=== PATIENT | female | born 1955 | race Caucasian/White ===

== ENCOUNTER 2023-01-28 10:59 | Observation (INO) | payer MEDICARE, SELFPAY ==
[2023-01-28] VITALS (32 sets, daily range): BP systolic 132–198; BP diastolic 57–84; PULSE 52–64; RESP 14–35; TEMP 36.2–36.6; O2SAT 91–100; BMI 36.3
--- NOTE | 2023-01-28 11:08 | DI.RAD.S_ITS ---
PROCEDURE: XR CHEST 1V INDICATIONS: chest pain TECHNIQUE: One view of the chest was acquired. COMPARISON: None. FINDINGS: Surgical changes and devices: None. Lungs and pleura: Lungs are clear. No pleural effusions or pneumothorax. Mediastinum: Mediastinal contours appear normal. Heart size is normal. Bones and chest wall: No suspicious bony lesions. Overlying soft tissues appear unremarkable. IMPRESSION: No acute cardiopulmonary abnormality. Dictated by: Richmond Taylor M.D. on 01/28/2023 at 11:34 Approved by: Richmond Taylor M.D. on 01/28/2023 at 11:35
[2023-01-28 11:24] LABS: Hematocrit 37.9 % (36-46); Hemoglobin 12.4 g/dL (12.0-16.0); Mean Corpuscular HGB Conc 32.8 % (30-36); Mean Corpuscular Hemoglobin 30.5 PG (26-34); Mean Corpuscular Volume 93.1 fL (80-100); Platelet Count 157 X10^3/uL (150-400); Red Blood Cell Count 4.07 X10^6/uL (4.0-5.2); Red Cell Distribution Width 15.1 % (11.6-14.8)
[2023-01-28] MEDS: ASPIRIN 81 MG CHEW TAB 324 MG PO (11:26)
[2023-01-28 11:27] LABS: Add Manual Diff / Slide Review YES
[2023-01-28 11:29] LABS: INR 1.1 (0.9-1.3); Prothrombin Time 12.3 SECONDS (10.1-12.7)
--- NOTE | 2023-01-28 11:29 | ED.CHESTPAIN ---
HPI - Chest Pain General Chief Complaint: Chest Pain Stated Complaint: Gurgling in lungs SOB? Time Seen by Provider: 01/28/23 11:10 Source: patient Mode of arrival: Ambulatory Limitations: no limitations History of Present Illness HPI narrative: Patient is 68-year-old female history of CLL hypertension presents today with chest discomfort. She reports that she had some yesterday but today while walking she noticed significant pain going up her left side it is not reproducible with deep breaths or movement. It actually stopped her. He feels like she is short of breath. Denies any trauma no fever chills or productive cough. No prior history of ND or coronary artery disease. No recent travel not on any anticoagulation medication. Related Data Home Medications Medication Instructions Recorded Confirmed Acidophilus Probiotic PO BEDTIME 01/28/23 Vitamin D3 Complete 15,000 units PO BEDTIME 01/28/23 01/28/23 levothyroxine 88 mcg tablet 88 mcg PO BEDTIME 01/28/23 01/28/23 (Synthroid) omeprazole 20 mg capsule,delayed 20 mg PO DAILY 01/28/23 01/28/23 release temazepam 15 mg capsule 15 mg PO BEDTIME PRN Insomnia 01/28/23 01/28/23 valacyclovir 1 gram tablet mg 01/28/23 Allergies Allergy/AdvReac Type Severity Reaction Status Date / Time codeine Allergy Unknown Verified 01/28/23 11:08 Penicillins Allergy Unknown Verified 01/28/23 11:08 simvastatin Allergy Unknown Verified 01/28/23 11:08 Review of Systems Review of Systems ROS Unobtainable: All systems reviewed & are unremarkable except as noted in HPI and below Patient History Medical History CLL (chronic lymphocytic leukemia) Social History household members: spouse Smoking Status: Former smoker Smoking Status: Former smoker alcohol intake frequency: holidays/special occasions only Substance Use Type: does not use Exam Initial Vital Signs Initial Vital Signs: Vital Signs Temperature 97.8 F 01/28/23 11:01 Pulse Rate 64 01/28/23 11:01 Respiratory Rate 14 01/28/23 11:01 Blood Pressure 196/81 H 01/28/23 11:01 Pulse Oximetry 99 01/28/23 11:01 Oxygen Delivery Method Room Air 01/28/23 11:01 GENERAL: Alert pleasant 68-year-old female and in no acute distress. HEENT: Head atraumatic,EOMI, pupils reactive, face symmetric, moist mucous membranes CARDIOVASCULAR: Regular rate and rhythm without murmurs, rubs or gallops. RESPIRATORY: Breath sounds equal bilaterally, no wheezes rales or rhonchi. ABDOMEN: Soft, nontender. Normoactive bowel sounds all 4 quadrants. No guarding or rebound. EXTREMITIES: Normal range of motion, no clubbing or edema. Neurovascularly intact NEUROLOGICAL: Alert and oriented x4. SKIN: Warm, dry, no laceration, no petechiae, no rashes or lesions. Scores HEART Score Heart Score history: Highly Suspicious Heart Score EKG: Normal Heart Score Age: > or = 65 years old Heart Score risk factors: 1-2 risk factors Heart Score troponin: < or = to normal limit Heart Score Total: 5 Course Orders Ordered: ED Orders 01/28/23 11:08 XR chest 1V Stat 01/28/23 11:16 BNP [NT-proBNP (BNP-Adult 18+)] Stat Complete Blood Count AUTO DIFF Stat Comprehensive Metabolic Panel Stat D Dimer Stat Lipase Stat Magnesium Stat PTT Partial Thromboplastin Loy Stat Prothrombin Time INR Stat Troponin & CK Cardiac Panel Stat 01/28/23 11:19 Urine Culture Stat Urine Microscopic Stat 01/28/23 11:33 EKG-12 Lead Stat 01/28/23 13:25 Trop I [Troponin I] Stat Acetaminophen (Acetaminophen 325 Mg Tablet) 650 mg PO Q6H PRN PRN Reason: Fever/Mild Pain (1-3) Aspirin (Aspirin Ec 81 Mg Tablet) 81 mg PO DAILY [facility] Enoxaparin Sodium (Enoxaparin 40 Mg/0.4 Ml Syringe) 40 mg SUBCUT DAILY [facility] Melatonin (Melatonin 3 Mg Tablet) 6 mg PO BEDTIME PRN PRN Reason: Insomnia Naloxone HCl (Naloxone 0.4 Mg/Ml Vial) 0.2 mg IV Q2MIN PRN PRN Reason: Opiate Reversal Nitroglycerin (Nitroglycerin 0.4 Mg Sl Tab) 0.4 mg SL [id number] PRN PRN Reason: Chest Pain Ondansetron HCl (Ondansetron 4 Mg/2 Ml Inj) 4 mg IV Q4HR PRN PRN Reason: Nausea And Vomiting Polyethylene Glycol (Polyethylene Glycol 3350 17 Gm Powd.Pack) 17 gm PO DAILY PRN PRN Reason: Constipation Sennosides (Sennosides 8.6 Mg Tablet) 8.6 mg PO BID PRN PRN Reason: Constipation Discontinued Medications Aspirin (Aspirin 81 Mg Chew Tab) 324 mg PO NOW ONE Stop: 01/28/23 11:09 Last Admin: 01/28/23 11:26 Dose: 324 mg Documented By: RB Ondansetron HCl (Ondansetron 4 Mg/2 Ml Inj) 4 mg IV Q4HR [facility] Vital Signs Vital signs: Vital Signs - 8 hr 01/28/23 11:01 01/28/23 11:16 01/28/23 11:17 Temperature 97.8 F Pulse Rate 64 59 L 58 L Respiratory Rate 14 22 18 Blood Pressure 196/81 H Pulse Oximetry 99 100 100 Oxygen Delivery Method Room Air 01/28/23 11:17 01/28/23 11:30 01/28/23 11:31 Temperature Pulse Rate 61 63 Respiratory Rate 25 H 29 H Blood Pressure 156/74 H Pulse Oximetry 99 100 Oxygen Delivery Method 01/28/23 11:31 01/28/23 11:45 01/28/23 11:46 Temperature Pulse Rate 63 63 Respiratory Rate 18 21 Blood Pressure 198/80 H Pulse Oximetry 97 97 Oxygen Delivery Method 01/28/23 11:46 01/28/23 12:00 01/28/23 12:00 Temperature Pulse Rate 58 L Respiratory Rate 17 Blood Pressure 151/73 H 157/67 H Pulse Oximetry 100 Oxygen Delivery Method 01/28/23 12:15 01/28/23 12:15 01/28/23 12:30 Temperature Pulse Rate 54 L Respiratory Rate 16 Blood Pressure 157/70 H 155/67 H Pulse Oximetry 99 Oxygen Delivery Method 01/28/23 12:30 01/28/23 12:48 01/28/23 13:00 Temperature Pulse Rate 55 L 60 52 L Respiratory Rate 18 15 Blood Pressure Pulse Oximetry 100 91 100 Oxygen Delivery Method 01/28/23 13:14 01/28/23 13:14 01/28/23 13:15 Temperature Pulse Rate 52 L 57 L Respiratory Rate 21 25 H Blood Pressure 150/65 H Pulse Oximetry 100 99 Oxygen Delivery Method 01/28/23 13:16 01/28/23 13:16 01/28/23 13:30 Temperature Pulse Rate 55 L Respiratory Rate 35 H Blood Pressure 158/71 H 145/66 H Pulse Oximetry 98 Oxygen Delivery Method 01/28/23 13:30 01/28/23 13:45 01/28/23 13:45 Temperature Pulse Rate 55 L 54 L Respiratory Rate 19 17 Blood Pressure 132/72 Pulse Oximetry 100 98 Oxygen Delivery Method 01/28/23 14:00 01/28/23 14:00 01/28/23 14:15 Temperature Pulse Rate 53 L 54 L Respiratory Rate 17 22 Blood Pressure 132/65 Pulse Oximetry 100 98 Oxygen Delivery Method 01/28/23 14:16 01/28/23 14:16 01/28/23 14:30 Temperature Pulse Rate 54 L Respiratory Rate 22 Blood Pressure 149/67 H 141/57 H Pulse Oximetry 99 Oxygen Delivery Method 01/28/23 14:30 01/28/23 14:45 01/28/23 14:45 Temperature Pulse Rate 53 L 54 L Respiratory Rate 19 19 Blood Pressure 143/67 H Pulse Oximetry 99 97 Oxygen Delivery Method 01/28/23 15:00 01/28/23 15:01 01/28/23 15:01 Temperature Pulse Rate 55 L 56 L Respiratory Rate 24 Blood Pressure 141/66 H Pulse Oximetry 97 94 Oxygen Delivery Method 01/28/23 15:15 01/28/23 15:15 01/28/23 15:30 Temperature Pulse Rate 54 L Respiratory Rate 18 Blood Pressure 158/67 H 150/72 H Pulse Oximetry 100 Oxygen Delivery Method 01/28/23 15:30 01/28/23 15:45 01/28/23 15:45 Temperature Pulse Rate 59 L 57 L Respiratory Rate 22 19 Blood Pressure 180/75 H Pulse Oximetry 98 99 Oxygen Delivery Method 01/28/23 16:00 01/28/23 16:00 Temperature Pulse Rate 55 L Respiratory Rate 17 Blood Pressure 169/73 H Pulse Oximetry 100 Oxygen Delivery Method MDM - Chest Pain Lab Data 01/28/23 11:16 01/28/23 11:16 Labs: Lab Results 01/28/23 01/28/23 01/28/23 Range/Units 11:16 11:16 11:16 WBC 67.6 H* (4.5-11.0) X10^3/uL RBC 4.07 (4.0-5.2) X10^6/uL Hgb 12.4 (12.0-16.0) g/dL Hct 37.9 (36-46) % MCV 93.1 (80-100) fL MCH 30.5 (26-34) PG MCHC 32.8 (30-36) % RDW 15.1 H (11.6-14.8) % Plt Count 157 (150-400) X10^3/uL Neut % (Auto) Not Reportable Lymph % (Auto) Not Reportable [place] % (Auto) Not Reportable Eos % (Auto) Not Reportable Baso % (Auto) Not Reportable Lymph # (Auto) Not Reportable [place] # (Auto) Not Reportable Baso # (Auto) Not Reportable Total Counted 100 Seg Neutrophils % 6.0 L (38-70) % Lymphocytes % (Manual) 91.0 H (25-45) % Atypical Lymphs % 1.0 H ( - 0) % Monocytes % (Manual) 2.0 (2-11) % Neutrophils # (Manual) 4056 (2246-5340) /uL Smudge Cells 2+ H RBC Morphology Normal morphology PT 12.3 (10.1-12.7) SECONDS INR 1.1 (0.9-1.3) APTT 28 (26-36) SECONDS D-Dimer (<500) ng/ml Sodium 137 (137-145) mmol/L Potassium 4.5 (3.4-5.1) mmol/L Chloride 102 (98-107) mmol/L Carbon Dioxide 30 (22-32) mmol/L BUN 26 H (7-17) mg/dL Creatinine 0.86 (0.52-1.04) mg/dL Estimated GFR > 60 (>60) mL/min BUN/Creatinine Ratio 30.2 H (6-22) Glucose 106 (80-110) mg/dL Calcium 9.0 (8.4-10.2) mg/dL Magnesium 2.2 (1.6-2.3) mg/dL Total Bilirubin 0.6 (0.2-1.3) mg/dL AST 34 (14-36) IU/L ALT 30 (<35) IU/L Alkaline Phosphatase 75 (38-126) U/L Total Creatine Kinase 47 (30-135) U/L Troponin I < 0.012 (0.01-0.034) ng/mL NT-Pro-B Natriuret Pep (<125) pg/mL Total Protein 6.9 (6.3-8.2) g/dL Albumin 4.3 (3.5-5.0) g/dL Globulin 2.6 (1.7-4.1) g/dL Albumin/Globulin Ratio 1.7 (1.0-2.8) Triglycerides (35-150) mg/dL Cholesterol (140-199) mg/dL LDL Cholesterol, Calc (<100) mg/dL HDL Cholesterol (40-60) mg/dL Lipase 94 (23-300) U/L Urine RBC (0-5/HPF) Urine WBC (0-5/HPF) Ur Squamous Epith Cells (0-5/HPF) Urine Bacteria (None) 01/28/23 01/28/23 01/28/23 Range/Units 11:16 11:16 11:19 WBC (4.5-11.0) X10^3/uL RBC (4.0-5.2) X10^6/uL Hgb (12.0-16.0) g/dL Hct (36-46) % MCV (80-100) fL MCH (26-34) PG MCHC (30-36) % RDW (11.6-14.8) % Plt Count (150-400) X10^3/uL Neut % (Auto) Lymph % (Auto) [place] % (Auto) Eos % (Auto) Baso % (Auto) Lymph # (Auto) [place] # (Auto) Baso # (Auto) Total Counted Seg Neutrophils % (38-70) % Lymphocytes % (Manual) (25-45) % Atypical Lymphs % ( - 0) % Monocytes % (Manual) (2-11) % Neutrophils # (Manual) (1035-9997) /uL Smudge Cells RBC Morphology PT (10.1-12.7) SECONDS INR (0.9-1.3) APTT (26-36) SECONDS D-Dimer 362 (<500) ng/ml Sodium (137-145) mmol/L Potassium (3.4-5.1) mmol/L Chloride (98-107) mmol/L Carbon Dioxide (22-32) mmol/L BUN (7-17) mg/dL Creatinine (0.52-1.04) mg/dL Estimated GFR (>60) mL/min BUN/Creatinine Ratio (6-22) Glucose (80-110) mg/dL Calcium (8.4-10.2) mg/dL Magnesium (1.6-2.3) mg/dL Total Bilirubin (0.2-1.3) mg/dL AST (14-36) IU/L ALT (<35) IU/L Alkaline Phosphatase (38-126) U/L Total Creatine Kinase (30-135) U/L Troponin I (0.01-0.034) ng/mL NT-Pro-B Natriuret Pep 82 (<125) pg/mL Total Protein (6.3-8.2) g/dL Albumin (3.5-5.0) g/dL Globulin (1.7-4.1) g/dL Albumin/Globulin Ratio (1.0-2.8) Triglycerides (35-150) mg/dL Cholesterol (140-199) mg/dL LDL Cholesterol, Calc (<100) mg/dL HDL Cholesterol (40-60) mg/dL Lipase (23-300) U/L Urine RBC 1-5/hpf (0-5/HPF) Urine WBC 0-1/hpf (0-5/HPF) Ur Squamous Epith Cells 0-1 /hpf (0-5/HPF) Urine Bacteria Moderate (10-30) H (None) 01/28/23 01/28/23 Range/Units 13:25 13:25 WBC (4.5-11.0) X10^3/uL RBC (4.0-5.2) X10^6/uL Hgb (12.0-16.0) g/dL Hct (36-46) % MCV (80-100) fL MCH (26-34) PG MCHC (30-36) % RDW (11.6-14.8) % Plt Count (150-400) X10^3/uL Neut % (Auto) Lymph % (Auto) [place] % (Auto) Eos % (Auto) Baso % (Auto) Lymph # (Auto) [place] # (Auto) Baso # (Auto) Total Counted Seg Neutrophils % (38-70) % Lymphocytes % (Manual) (25-45) % Atypical Lymphs % ( - 0) % Monocytes % (Manual) (2-11) % Neutrophils # (Manual) (4118-7858) /uL Smudge Cells RBC Morphology PT (10.1-12.7) SECONDS INR (0.9-1.3) APTT (26-36) SECONDS D-Dimer (<500) ng/ml Sodium (137-145) mmol/L Potassium (3.4-5.1) mmol/L Chloride (98-107) mmol/L Carbon Dioxide (22-32) mmol/L BUN (7-17) mg/dL Creatinine (0.52-1.04) mg/dL Estimated GFR (>60) mL/min BUN/Creatinine Ratio (6-22) Glucose (80-110) mg/dL Calcium (8.4-10.2) mg/dL Magnesium (1.6-2.3) mg/dL Total Bilirubin (0.2-1.3) mg/dL AST (14-36) IU/L ALT (<35) IU/L Alkaline Phosphatase (38-126) U/L Total Creatine Kinase (30-135) U/L Troponin I < 0.012 (0.01-0.034) ng/mL NT-Pro-B Natriuret Pep (<125) pg/mL Total Protein (6.3-8.2) g/dL Albumin (3.5-5.0) g/dL Globulin (1.7-4.1) g/dL Albumin/Globulin Ratio (1.0-2.8) Triglycerides 148 (35-150) mg/dL Cholesterol 184 (140-199) mg/dL LDL Cholesterol, Calc 113 H (<100) mg/dL HDL Cholesterol 41 (40-60) mg/dL Lipase (23-300) U/L Urine RBC (0-5/HPF) Urine WBC (0-5/HPF) Ur Squamous Epith Cells (0-5/HPF) Urine Bacteria (None) Urine Dip Bedside Urine Glucose Negative Bedside Urine Bilirubin - Negative Bedside Urine Ketone - Negative Urine Specific [place] 1.015 Bedside Urine Occult Blood +++ Bedside Urine pH 6.0 Bedside Urine Protein - Negative Bedside Urine Urobilinogen - Negative Bedside Urine Nitrite - Negative Bedside Urine Leukocytes - Negative Esterase Imaging Data Chest x-ray: Radiologist's Impression: PROCEDURE:? XR CHEST 1V ? INDICATIONS:? chest pain ? TECHNIQUE:? One view of the chest was acquired.? ? COMPARISON:? None. ? FINDINGS:? ? Surgical changes and devices:? None.? ? Lungs and pleura:? Lungs are clear.? No pleural effusions or pneumothorax.? ? Mediastinum:? Mediastinal contours appear normal.? Heart size is normal.? ? Bones and chest wall:? No suspicious bony lesions.? Overlying soft tissues appear unremarkable.? ? IMPRESSION:? No acute cardiopulmonary abnormality. ? ? ? Dictated by: Richmond Taylor M.D. on 01/28/2023 at 11:34 ? ? ECG Data Interpretation: Normal sinus rhythm rate 61 TX interval 170 QRS [address] changes no T-wave inversions probable early repolarization EKG 2. Sinus rhythm rate 55 similar to previous EKG MDM Narrative Medical decision making narrative: Patient 68-year-old female history of hypertension hyperlipidemia, CLL presenting today with chest pain shortness of breath with exertion better with rest. She is 2- troponins EKGs show probably benign early positional repolarization but not ST elevation. She got up to use the restroom by the time she got back realize that she had some chest discomfort and relieved with rest. Blood work is overall reassuring she has leukocytosis 67 she reports that it was previously 81 she would a dental infection. No evidence of anemia no [place] or electrolyte abnormality. Chest x-ray is negative. With underlying cancer concern for PE as well however D-dimer is negative and she is not hypoxic. She is a heart score of 5 symptoms are certainly concerning for acute coronary disease. She received aspirin in the ER. Dr. Santacruz updated patient's symptoms test results agrees with admission We are not able to get a stress test intact Monday she is willing to be in the hospital until it is done. Discharge Plan Departure Patient Disposition: Admitted as Observation Clinical Impression: Chest pain Admit Date/Time: 01/28/23 16:13 Admit Provider: Rafat Santacruz
[2023-01-28 11:31] LABS: PTT Partial Thromboplastin Tim 28 SECONDS (26-36)
[2023-01-28 11:32] LABS: White Blood Cell Count 67.6 X10^3/uL (4.5-11.0)
[2023-01-28 11:35] LABS: Alanine Aminotransferase 30 IU/L (<35); Albumin 4.3 g/dL (3.5-5.0); Albumin Globulin Ratio 1.7 (1.0-2.8); Alkaline Phosphatase 75 U/L (38-126); Aspartate Aminotransferase 34 IU/L (14-36); BUN Creatinine Ratio 30.2 (6-22); Bilirubin Total 0.6 mg/dL (0.2-1.3); Blood Urea Nitrogen 26 mg/dL (7-17); Carbon Dioxide 30 mmol/L (22-32); Chloride 102 mmol/L (98-107); Creatine Kinase 47 U/L (30-135); Estimated Glomerular Filt Rate > 60 mL/min (>60); Globulin 2.6 g/dL (1.7-4.1); Glucose 106 mg/dL (80-110); HEMOLYSIS < 15 (0-50); Lipase 94 U/L (23-300); Magnesium 2.2 mg/dL (1.6-2.3); Potassium 4.5 mmol/L (3.4-5.1); Sodium 137 mmol/L (137-145); Total Protein 6.9 g/dL (6.3-8.2)
[2023-01-28 11:41] LABS: Neutrophils Absolute Manual 4056 /uL (3000-5900); RBC Morphology Normal Morphology; Smudge Cells 2+; Total Cells Counted 100
[2023-01-28 11:44] LABS: NT-proBNP (BNP-Adult 18+) 82 pg/mL (<125)
[2023-01-28 11:46] LABS: D Dimer 362 ng/ml (<500); Troponin I < 0.012 ng/mL (0.01-0.034)
[2023-01-28 11:53] LABS: Bacteria Urine Moderate (10-30); RBC Urine 1-5/HPF (0-5/HPF); Squamous Epithelial Cell Urine 0-1 /HPF (0-5/HPF); WBC Urine 0-1/HPF (0-5/HPF)
[2023-01-28 13:55] LABS: Troponin I < 0.012 ng/mL (0.01-0.034)
--- NOTE | 2023-01-28 16:09 | P.HP_ITS ---
History of Present Illness History of Present Illness Date Patient Seen: 01/28/23 Time Patient Seen: 18:00 Chief complaint: Gurgling in lungs SOB? Narrative: Anaid Clifford is a 68yo F with PMH of CLL, GERD and hypothryoidism who presents with chest pain. Patient states she was at an estate sale today with her and had sudden onset left-sided sharp chest pain is worse with deep breaths. Patient states side of her ribs 3 days ago on a board. Did not think much of it. She is normally very active and walks around [facility] in [place] often. She has not had pain like this before. However she has noticed several weeks of chest pressure and slight shortness of breath with exertion for which her PCP ordered a stress test which she has scheduled on February 08. Her left- sided chest pain feels very different from the chest pressure she has been h aving. This is while in certain positions a ?gurgling? in her left side over where the sharp pain was previously. She denies headache, nausea vomiting, diaphoresis, abdominal pain, or diarrhea. [facility] Medical History CLL (chronic lymphocytic leukemia) Social History household members: spouse Smoking Status: Former smoker Meds Home Medications and Allergies Home Medications Medication Instructions Recorded Confirmed Type Acidophilus Probiotic PO BEDTIME 01/28/23 History Vitamin D3 Complete 15,000 units PO BEDTIME 01/28/23 01/28/23 History levothyroxine 88 mcg tablet 88 mcg PO BEDTIME 01/28/23 01/28/23 History (Synthroid) omeprazole 20 mg capsule,delayed 20 mg PO DAILY 01/28/23 01/28/23 History release temazepam 15 mg capsule 15 mg PO BEDTIME PRN Insomnia 01/28/23 01/28/23 History valacyclovir 1 gram tablet mg 01/28/23 History Allergies Allergy/AdvReac Type Severity Reaction Status Date / Time codeine Allergy Unknown Verified 01/28/23 11:08 Penicillins Allergy Unknown Verified 01/28/23 11:08 simvastatin Allergy Unknown Verified 01/28/23 11:08 Review of Systems Review of Systems Narrative: All other systems reviewed with the patient and are negative unless otherwise stated. Exam Vital Signs (past 8 hours): - 01/28/23 11:01 01/28/23 11:16 01/28/23 11:17 Temperature 97.8 F Pulse Rate 64 59 L 58 L Respiratory Rate 14 22 18 Blood Pressure 196/81 H Pulse Oximetry 99 100 100 Oxygen Delivery Method Room Air 01/28/23 11:17 01/28/23 11:30 01/28/23 11:31 Temperature Pulse Rate 61 63 Respiratory Rate 25 H 29 H Blood Pressure 156/74 H Pulse Oximetry 99 100 Oxygen Delivery Method 01/28/23 11:31 01/28/23 11:45 01/28/23 11:46 Temperature Pulse Rate 63 63 Respiratory Rate 18 21 Blood Pressure 198/80 H Pulse Oximetry 97 97 Oxygen Delivery Method 01/28/23 11:46 01/28/23 12:00 01/28/23 12:00 Temperature Pulse Rate 58 L Respiratory Rate 17 Blood Pressure 151/73 H 157/67 H Pulse Oximetry 100 Oxygen Delivery Method 01/28/23 12:15 01/28/23 12:15 01/28/23 12:30 Temperature Pulse Rate 54 L Respiratory Rate 16 Blood Pressure 157/70 H 155/67 H Pulse Oximetry 99 Oxygen Delivery Method 01/28/23 12:30 01/28/23 12:48 01/28/23 13:00 Temperature Pulse Rate 55 L 60 52 L Respiratory Rate 18 15 Blood Pressure Pulse Oximetry 100 91 100 Oxygen Delivery Method 01/28/23 13:14 01/28/23 13:14 01/28/23 13:15 Temperature Pulse Rate 52 L 57 L Respiratory Rate 21 25 H Blood Pressure 150/65 H Pulse Oximetry 100 99 Oxygen Delivery Method 01/28/23 13:16 01/28/23 13:16 01/28/23 13:30 Temperature Pulse Rate 55 L Respiratory Rate 35 H Blood Pressure 158/71 H 145/66 H Pulse Oximetry 98 Oxygen Delivery Method 01/28/23 13:30 01/28/23 13:45 01/28/23 13:45 Temperature Pulse Rate 55 L 54 L Respiratory Rate 19 17 Blood Pressure 132/72 Pulse Oximetry 100 98 Oxygen Delivery Method Oxygen Delivery Method Room Air Narrative Exam Narrative: GEN: no acute distress HEENT: moist mucous membranes, PERRL NECK: trachea midline, no JVD CV: regular rate and rhythm, no murmurs PULM: clear bilaterally ABD: soft, nontender, nondistended, no organomegaly MSK: Pain with palpation of left lateral ribcage below left breast EXT: warm and well perfused with no edema NEURO: awake, alert, oriented, no focal deficits Objective Labs 01/28/23 11:16 01/28/23 11:16 Labs: Laboratory Results - last 24 hr 01/28/23 01/28/23 01/28/23 11:16 11:16 11:16 WBC 67.6 H* RBC 4.07 Hgb 12.4 Hct 37.9 MCV 93.1 MCH 30.5 MCHC 32.8 RDW 15.1 H Plt Count 157 Neut % (Auto) Not Reportable Lymph % (Auto) Not Reportable [place] % (Auto) Not Reportable Eos % (Auto) Not Reportable Baso % (Auto) Not Reportable Lymph # (Auto) Not Reportable [place] # (Auto) Not Reportable Baso # (Auto) Not Reportable Total Counted 100 Seg Neutrophils % 6.0 L Lymphocytes % (Manual) 91.0 H Atypical Lymphs % 1.0 H Monocytes % (Manual) 2.0 Neutrophils # (Manual) 4056 Smudge Cells 2+ H RBC Morphology Normal morphology PT 12.3 INR 1.1 APTT 28 D-Dimer Sodium 137 Potassium 4.5 Chloride 102 Carbon Dioxide 30 BUN 26 H Creatinine 0.86 Estimated GFR > 60 BUN/Creatinine Ratio 30.2 H Glucose 106 Calcium 9.0 Magnesium 2.2 Total Bilirubin 0.6 AST 34 ALT 30 Alkaline Phosphatase 75 Total Creatine Kinase 47 Troponin I < 0.012 NT-Pro-B Natriuret Pep Total Protein 6.9 Albumin 4.3 Globulin 2.6 Albumin/Globulin Ratio 1.7 Lipase 94 Urine RBC Urine WBC Ur Squamous Epith Cells Urine Bacteria 01/28/23 01/28/23 01/28/23 11:16 11:16 11:19 WBC RBC Hgb Hct MCV MCH MCHC RDW Plt Count Neut % (Auto) Lymph % (Auto) [place] % (Auto) Eos % (Auto) Baso % (Auto) Lymph # (Auto) [place] # (Auto) Baso # (Auto) Total Counted Seg Neutrophils % Lymphocytes % (Manual) Atypical Lymphs % Monocytes % (Manual) Neutrophils # (Manual) Smudge Cells RBC Morphology PT INR APTT D-Dimer 362 Sodium Potassium Chloride Carbon Dioxide BUN Creatinine Estimated GFR BUN/Creatinine Ratio Glucose Calcium Magnesium Total Bilirubin AST ALT Alkaline Phosphatase Total Creatine Kinase Troponin I NT-Pro-B Natriuret Pep 82 Total Protein Albumin Globulin Albumin/Globulin Ratio Lipase Urine RBC 1-5/hpf Urine WBC 0-1/hpf Ur Squamous Epith Cells 0-1 /hpf Urine Bacteria Moderate (10-30) H 01/28/23 13:25 WBC RBC Hgb Hct MCV MCH MCHC RDW Plt Count Neut % (Auto) Lymph % (Auto) [place] % (Auto) Eos % (Auto) Baso % (Auto) Lymph # (Auto) [place] # (Auto) Baso # (Auto) Total Counted Seg Neutrophils % Lymphocytes % (Manual) Atypical Lymphs % Monocytes % (Manual) Neutrophils # (Manual) Smudge Cells RBC Morphology PT INR APTT D-Dimer Sodium Potassium Chloride Carbon Dioxide BUN Creatinine Estimated GFR BUN/Creatinine Ratio Glucose Calcium Magnesium Total Bilirubin AST ALT Alkaline Phosphatase Total Creatine Kinase Troponin I < 0.012 NT-Pro-B Natriuret Pep Total Protein Albumin Globulin Albumin/Globulin Ratio Lipase Urine RBC Urine WBC Ur Squamous Epith Cells Urine Bacteria Assessment & Plan Assessment & Plan narrative: # chest pain with dyspnea -S pain appears to be pleuritic in nature, possibly costochondritis as patient hit left side of ribs 3 days ago on a board. CXR normal. -heart score of 4-5 -echo ordered -Lexiscan stress test ordered -troponins negative x2, check AM trop -if echo normal can consider deferring to outpatient stress test patient has scheduled on February 08 -tele # active CLL -WBC 67.6 -monitor # hypothyroidism -continue home Synthroid GERD -continue home PPI Code status is full code. DVT prophylaxis with Lovenox. Proxy is [place]. I have reviewed home meds and used all available resources to reconcile the home meds. This patient will be admitted as observation and will require less than 2 midnights of hospital time to treat chest pain.
--- NOTE | 2023-01-28 16:29 | DI.ECHO.S_ITS ---
[facility]---------+ [facility] +---------+ : : [address] : : [place], [place] : : : : [id number] : : : : Phone: [phone]+ Echocardiogram Report + + :Name: SYMONE LOPEZ Study Date: 01/29/2023 Height: 63 in : :[facility] ReadingLocation: Weight: 205 lb : : Gender: Female BSA: 2.0 m2 : :: 1955 Age: 68 yrs BP: 129/67 mmHg: :Reason For Study: CHEST PAIN : : Performed By: Drea Frederick : :Referring: DEBBIE KUMAR A : + + Interpretation Summary 1) Normal left ventricular thickness, size, wall motion, and systolic function (EF 60-65%). 2) Normal right ventricular size and function. 3) No significant valvular abnormalities. 4) No prior Echo available for comparison. Procedure: A two-dimensional transthoracic echocardiogram with color flow and Doppler was performed. The study quality was technically adequate. There is no prior echocardiogram noted for this patient. The patient was in a bradycardic rhythm during the exam. Left Ventricle: The left ventricle appears normal in size, wall thickness, and systolic function without any focal wall motion abnormalities. The ejection fraction is estimated to be 60-65%. Diastolic parameters suggest a relaxation abnormality of the left ventricle, consistent with probable normal filling pressures. Right Ventricle: The right ventricle is normal in size and function. Atria: Both atria are normal in size. There is no Doppler evidence for an interatrial shunt. Mitral Valve: The mitral valve leaflets are mildly calcified. There is trace mitral regurgitation. Aortic Valve: The aortic valve is trileaflet. The aortic valve opens well. The aortic valve is mildly calcified. There is no aortic valve stenosis. No aortic regurgitation is present. Tricuspid Valve: The tricuspid valve is normal in structure and function. There is a trace or physiologic amount of tricuspid regurgitation. The right ventricular systolic pressure is estimated to be at least 23 mmHg based on an estimated right atrial pressure of 3 mm Hg. Pulmonic Valve: The pulmonic valve is not well visualized. Great Vessels: The aortic root is normal size. The ascending aorta is normal in size. The aortic arch is normal in size. The pulmonary is not well visualized. The IVC is of normal diameter and collapses greater than 50% with a sniff. This suggests a low right atrial pressure of 3 mm Hg. Pericardium/ Pleura There is no pericardial effusion. There is no pleural effusion. MMode/2D Measurements & Calculations LVIDd: 4.3 cm LVOT diam: 2.1 cm LVIDs: 2.9 cm Ao root diam: 3.4 cm FS: 31.1 % asc Aorta Diam: 3.1 cm EPSS: 0.42 cm Ao Arch Diam (Prox Trans): 2.7 cm IVSd: 0.83 cm LVPWd: 0.89 cm LV oro. diameter/BSA (cm/m^2): 2.2 LV sys. diameter/BSA (cm/m^2): 1.5 LA A2 area: 16.5 cm2 RA long axis: 4.7 cm LA A4 area: 20.1 cm2 RA area: 11.5 cm2 LA length (vol): 5.7 cm RA vol: 24.0 ml LA vol: 49.4 ml RA : 12.3 ml/m2 LA vol index: 25.3 ml/m2 IVC diam: 0.82 cm RVD1 (basal): 3.8 cm Doppler Measurements & Calculations Ao V2 max: 158.3 cm/sec LVOT Max [place]: 114.5 cm/sec Ao V2 mean: 98.9 cm/sec LV V1 max P.2 mmHg Ao max P.0 mmHg LV V1 VTI: 27.2 cm Ao mean P.4 mmHg PHILLIP(I,D): 2.9 cm2 Ao V2 VTI: 31.5 cm PHILLIP(V,D): 2.4 cm2 sev ratio: 0.87 PHILLIP indexed to BSA (cm^2/m^2): 1.5 MV E max melida: 80.6 cm/sec TR max melida: 219.5 cm/sec MV A max melida: 88.6 cm/sec TR max P.3 mmHg MV E/A: 0.91 Med Peak E' [place]: 5.3 cm/sec E/E' med: 15.3 Lat Peak E' [place]: 8.2 cm/sec E/E' lat: 9.8 E/e' average: 12.5 MV P1/2t: 66.5 msec MV P1/2t max melida: 80.6 cm/sec SV(LVOT): 90.1 ml MVA(P1/2t): 3.3 cm2 Reading Physician:02:49 PM
[2023-01-28 16:57] LABS: Cholesterol 184 mg/dL (140-199); HDL Cholesterol 41 mg/dL (40-60); LDL Cholesterol Calculated 113 mg/dL (<100); Triglycerides 148 mg/dL (35-150)
[2023-01-28 17:28] LABS: TSH w/ Reflex to FT4 0.17 uIU/mL (0.47-4.68)
[2023-01-28] MEDS: LEVOTHYROXINE 88 MCG TABLET PO (22:53)
[2023-01-28] MEDS: ATORVASTATIN 20 MG TABLET 10 MG PO (22:53)
[2023-01-29] VITALS (7 sets, daily range): BP systolic 122–142; BP diastolic 55–81; PULSE 56–70; RESP 16–18; TEMP 35.9–36.6; O2SAT 95–97
[2023-01-29] MEDS: PANTOPRAZOLE DR 20 MG TABLET PO (05:44)
[2023-01-29 06:30] LABS: Hematocrit 38.7 % (36-46); Hemoglobin 12.8 g/dL (12.0-16.0); Mean Corpuscular HGB Conc 32.9 % (30-36); Mean Corpuscular Hemoglobin 30.5 PG (26-34); Mean Corpuscular Volume 92.7 fL (80-100); Platelet Count 146 X10^3/uL (150-400); Red Blood Cell Count 4.18 X10^6/uL (4.0-5.2)
[2023-01-29 06:31] LABS: Add Manual Diff / Slide Review YES
[2023-01-29 06:33] LABS: BUN Creatinine Ratio 26.6 (6-22); Blood Urea Nitrogen 21 mg/dL (7-17); Calcium 9.1 mg/dL (8.4-10.2); Carbon Dioxide 28 mmol/L (22-32); Chloride 104 mmol/L (98-107); Estimated Glomerular Filt Rate > 60 mL/min (>60); Glucose 89 mg/dL (80-110); HEMOLYSIS < 15 (0-50); Potassium 4.4 mmol/L (3.4-5.1); Sodium 137 mmol/L (137-145)
[2023-01-29 06:35] LABS: White Blood Cell Count 69.3 X10^3/uL (4.5-11.0)
[2023-01-29 06:45] LABS: Neutrophils Absolute Manual 7623 /uL (3000-5900); RBC Morphology Normal Morphology; Total Cells Counted 100; Troponin I < 0.012 ng/mL (0.01-0.034)
[2023-01-29 06:46] LABS: Smudge Cells 2+
--- NOTE | 2023-01-29 07:47 | P.PN_ITS ---
Subjective Subjective Date Patient Seen: 01/29/23 Interval history: She is seen today to follow-up her left pleuritic chest pain and her description of a ?gurgling in her lungs. ? She is feeling better. She is very talkative. Her vital signs look good. The white blood count is stable and the platelets are 146. The BMP normal. The TSH was 0.17 on 01/28. She is Pending a cardiac scan. Exam Vital Signs (past 8 hours): - 01/29/23 00:05 01/29/23 04:25 Temperature 97.6 F 97.1 F L Pulse Rate 60 61 Respiratory Rate 16 16 Blood Pressure 142/75 H 125/71 Pulse Oximetry 97 95 Oxygen Flow Rate 0 0 Oxygen Delivery Method Room Air Oxygen Flow Rate 0 Narrative Exam Narrative: Talkative, expansive, no apparent distress, oriented x3 Heart is regular rate and rhythm without murmur Lungs are clear to auscultation bilaterally Abdomen is soft, bowel sounds positive, nontender, no organomegaly. Extremities have no ankle edema. There is no chest wall tenderness detected. Objective Labs 01/29/23 05:45 01/29/23 05:45 Labs: Laboratory Results - last 24 hr 01/28/23 01/28/23 01/28/23 11:16 11:16 11:16 WBC 67.6 H* RBC 4.07 Hgb 12.4 Hct 37.9 MCV 93.1 MCH 30.5 MCHC 32.8 RDW 15.1 H Plt Count 157 Neut % (Auto) Not Reportable Lymph % (Auto) Not Reportable [place] % (Auto) Not Reportable Eos % (Auto) Not Reportable Baso % (Auto) Not Reportable Lymph # (Auto) Not Reportable [place] # (Auto) Not Reportable Baso # (Auto) Not Reportable Total Counted 100 Seg Neutrophils % 6.0 L Lymphocytes % (Manual) 91.0 H Atypical Lymphs % 1.0 H Monocytes % (Manual) 2.0 Neutrophils # (Manual) 4056 Smudge Cells 2+ H RBC Morphology Normal morphology PT 12.3 INR 1.1 APTT 28 D-Dimer Sodium 137 Potassium 4.5 Chloride 102 Carbon Dioxide 30 BUN 26 H Creatinine 0.86 Estimated GFR > 60 BUN/Creatinine Ratio 30.2 H Glucose 106 Calcium 9.0 Magnesium 2.2 Total Bilirubin 0.6 AST 34 ALT 30 Alkaline Phosphatase 75 Total Creatine Kinase 47 Troponin I < 0.012 NT-Pro-B Natriuret Pep Total Protein 6.9 Albumin 4.3 Globulin 2.6 Albumin/Globulin Ratio 1.7 Triglycerides Cholesterol LDL Cholesterol, Calc HDL Cholesterol Lipase 94 TSH Free T4 Urine RBC Urine WBC Ur Squamous Epith Cells Urine Bacteria 01/28/23 01/28/23 01/28/23 11:16 11:16 11:16 WBC RBC Hgb Hct MCV MCH MCHC RDW Plt Count Neut % (Auto) Lymph % (Auto) [place] % (Auto) Eos % (Auto) Baso % (Auto) Lymph # (Auto) [place] # (Auto) Baso # (Auto) Total Counted Seg Neutrophils % Lymphocytes % (Manual) Atypical Lymphs % Monocytes % (Manual) Neutrophils # (Manual) Smudge Cells RBC Morphology PT INR APTT D-Dimer 362 Sodium Potassium Chloride Carbon Dioxide BUN Creatinine Estimated GFR BUN/Creatinine Ratio Glucose Calcium Magnesium Total Bilirubin AST ALT Alkaline Phosphatase Total Creatine Kinase Troponin I NT-Pro-B Natriuret Pep 82 Total Protein Albumin Globulin Albumin/Globulin Ratio Triglycerides Cholesterol LDL Cholesterol, Calc HDL Cholesterol Lipase TSH 0.17 L Free T4 1.40 Urine RBC Urine WBC Ur Squamous Epith Cells Urine Bacteria 01/28/23 01/28/23 01/28/23 11:19 13:25 13:25 WBC RBC Hgb Hct MCV MCH MCHC RDW Plt Count Neut % (Auto) Lymph % (Auto) [place] % (Auto) Eos % (Auto) Baso % (Auto) Lymph # (Auto) [place] # (Auto) Baso # (Auto) Total Counted Seg Neutrophils % Lymphocytes % (Manual) Atypical Lymphs % Monocytes % (Manual) Neutrophils # (Manual) Smudge Cells RBC Morphology PT INR APTT D-Dimer Sodium Potassium Chloride Carbon Dioxide BUN Creatinine Estimated GFR BUN/Creatinine Ratio Glucose Calcium Magnesium Total Bilirubin AST ALT Alkaline Phosphatase Total Creatine Kinase Troponin I < 0.012 NT-Pro-B Natriuret Pep Total Protein Albumin Globulin Albumin/Globulin Ratio Triglycerides 148 Cholesterol 184 LDL Cholesterol, Calc 113 H HDL Cholesterol 41 Lipase TSH Free T4 Urine RBC 1-5/hpf Urine WBC 0-1/hpf Ur Squamous Epith Cells 0-1 /hpf Urine Bacteria Moderate (10-30) H 01/29/23 01/29/23 01/29/23 05:45 05:45 05:45 WBC 69.3 H* RBC 4.18 Hgb 12.8 Hct 38.7 MCV 92.7 MCH 30.5 MCHC 32.9 RDW 15.0 H Plt Count 146 L Neut % (Auto) Not Reportable Lymph % (Auto) Not Reportable [place] % (Auto) Not Reportable Eos % (Auto) Not Reportable Baso % (Auto) Not Reportable Lymph # (Auto) Not Reportable [place] # (Auto) Not Reportable Baso # (Auto) Not Reportable Total Counted 100 Seg Neutrophils % 11.0 L D Lymphocytes % (Manual) 85.0 H Atypical Lymphs % 1.0 H Monocytes % (Manual) 3.0 Neutrophils # (Manual) 7623 H Smudge Cells 2+ H RBC Morphology Normal morphology PT INR APTT D-Dimer Sodium 137 Potassium 4.4 Chloride 104 Carbon Dioxide 28 BUN 21 H Creatinine 0.79 Estimated GFR > 60 BUN/Creatinine Ratio 26.6 H Glucose 89 Calcium 9.1 Magnesium Total Bilirubin AST ALT Alkaline Phosphatase Total Creatine Kinase Troponin I < 0.012 NT-Pro-B Natriuret Pep Total Protein Albumin Globulin Albumin/Globulin Ratio Triglycerides Cholesterol LDL Cholesterol, Calc HDL Cholesterol Lipase TSH Free T4 Urine RBC Urine WBC Ur Squamous Epith Cells Urine Bacteria PFSH Medical History CLL (chronic lymphocytic leukemia) Social History household members: spouse Smoking Status: Former smoker Assessment & Plan Assessment & Plan narrative: Chest pain with dyspnea -This pain appears to be pleuritic in nature, possibly costochondritis as patient hit the left side of ribs 3 days ago on a board. CXR normal. -heart score of 4-5 -Ddimer normal at 362 -echo pending -Lexiscan stress test ordered -troponins negative x2, check AM trop -if echo normal can consider deferring to outpatient stress test patient has scheduled on February 08 -tele # active CLL -WBC 67.6, 69.3 -monitor # hypothyroidism -T4 1.4 and TSH 0.17 -continue home Synthroid, consider decreasing dose GERD -continue home PPI Code status is full code. DVT prophylaxis with Lovenox. Proxy is [place]. .
[2023-01-29] MEDS: ASPIRIN EC 81 MG TABLET PO (08:20)
[2023-01-29] MEDS: ENOXAPARIN 40 MG/0.4 ML SYRINGE SUBCUT (08:20)
--- NOTE | 2023-01-29 11:34 | CM.DANOTE ---
Initial Discharge Assessment Note: Case reviewed, met with patient. Introduced self and role. Payer: [facility] PCP: Paula Sauceda 68 yo female admitted with sudden onset of deep, sharp chest pain, worsening on inspiration. She will be undergoing an Echo today and a cardiac stress test today or tomorrow. She states she feels better lying down and that when she is up after a while the pain returns. The patient and her live in [place] and are active and independent. She drives. PLAN: When medically cleared, return home to previous living arrangement. No DC needs needed most likely. JOSE D Discharge Planning/Care Management CM Discharge Assessment Start: 01/29/23 11:32 Freq: Status: Active Protocol: Document 01/29/23 11:33 (Rec: 01/29/23 11:34 [id number]) Discharge Planning Assessment Assigned Horticulture Supervisor Melissa Moreno RN/DCP Advance Directives? No History Provided By Patient Prior Living Arrangements House Household Members spouse Type of transporation used prior to Drives own vehicle admit Independent with ADL's Yes Is patient alert and oriented? Yes Caregiver for Another No Barriers to Discharge No Discharge Plan Home Transportation Arrangement Home in private vehicle, spouse Additional Comment To be determined Review Status In Process Next Review Type Continued Stay Review
[2023-01-29] MEDS: ATORVASTATIN 20 MG TABLET 10 MG PO (22:00)
[2023-01-29] MEDS: LEVOTHYROXINE 88 MCG TABLET PO (22:00)
[2023-01-30 04:10] LABS: x Labcorp Estim. Avg Glu (eAG) 111 mg/dL (.); x Labcorp Hemoglobin A1c 5.5 % (4.8-5.6)
[2023-01-30 04:25] VITALS: BP 122/55; PULSE 56; RESP 16; TEMP 36.3; O2SAT 95
[2023-01-30] MEDS: PANTOPRAZOLE DR 20 MG TABLET PO (05:51)
[2023-01-30 06:29] LABS: Hematocrit 38.7 % (36-46); Hemoglobin 12.6 g/dL (12.0-16.0); Mean Corpuscular HGB Conc 32.5 % (30-36); Mean Corpuscular Hemoglobin 30.2 PG (26-34); Mean Corpuscular Volume 92.9 fL (80-100); Platelet Count 147 X10^3/uL (150-400); Red Blood Cell Count 4.17 X10^6/uL (4.0-5.2); Red Cell Distribution Width 14.6 % (11.6-14.8)
[2023-01-30 06:31] LABS: Add Manual Diff / Slide Review YES; BUN Creatinine Ratio 30.7 (6-22); Blood Urea Nitrogen 23 mg/dL (7-17); Calcium 9.3 mg/dL (8.4-10.2); Carbon Dioxide 27 mmol/L (22-32); Chloride 104 mmol/L (98-107); Estimated Glomerular Filt Rate > 60 mL/min (>60); Glucose 96 mg/dL (80-110); HEMOLYSIS < 15 (0-50); Potassium 4.2 mmol/L (3.4-5.1); Sodium 137 mmol/L (137-145)
[2023-01-30 06:32] LABS: White Blood Cell Count 67.2 X10^3/uL (4.5-11.0)
[2023-01-30 06:57] LABS: Neutrophils Absolute Manual 12768 /uL (3000-5900); RBC Morphology Normal Morphology; Smudge Cells 3+; Total Cells Counted 100
[2023-01-30 08:00] VITALS: BP 122/72; PULSE 67; RESP 16; TEMP 35.8; O2SAT 100
[2023-01-30] MEDS: ASPIRIN EC 81 MG TABLET PO (08:00)
[2023-01-30] MEDS: ENOXAPARIN 40 MG/0.4 ML SYRINGE SUBCUT (08:01)
--- NOTE | 2023-01-30 08:15 | P.DS_ITS ---
History of Present Illness History of Present Illness Date Patient Seen: 01/30/23 Time Patient Seen: 08:15 Chief complaint: Gurgling in lungs SOB? Narrative: Per admitting provider, Anaid Clifford is a 68yo F with PMH of CLL, GERD and hypothryoidism who presents with chest pain. Patient states she was at an estate sale today with her and had sudden onset left-sided sharp chest pain is worse with deep breaths. Patient states side of her ribs 3 days ago on a board. Did not think much of it. She is normally very active and walks around [facility] in [place] often. She has not had pain like this before. However she has noticed several weeks of chest pressure and slight shortness of breath with exertion for which her PCP ordered a stress test which she has scheduled on February 08. Her left- sided chest pain feels very different from the chest pressure she has been having. This is while in certain positions a ?gurgling? in her left side over where the sharp pain was previously. She denies headache, nausea vomiting, diaphoresis, abdominal pain, or diarrhea. Discharge Providers Provider Date of admission: 01/28/23 16:13 Discharge Date: 01/30/23 Primary care physician: Paula Sauceda DO Discharge provider: Jatin Brady DO Summary Hospital Course Discharge Diagnosis: #Chest pain with dyspnea # active CLL # hypothyroidism GERD Hospital Course: This is a 68 year old female with PMH of hypothyroidism and CLL who presented with chest pain and dyspnea. Her heart score was between 4 and 5 on admission. She had no acute events on telemetry, with multiple negative troponins and an unremarkable echocardiogram without systolic dysfunction or wall motion abnormalities. She has an outpatient stress test scheduled for next week at [facility]. She stayed initially for inpatient stress testing, but given reassuring initial evaluation, patient elected for discharge home instead of possible 2 day stress testing here in the hospital after discussion of the risks and benefits. No changes to her home medications are recommended at the time of discharge. Time Spent with Patient Time spent: Less than 30 minutes Exam Vital Signs (past 8 hours): - 01/30/23 04:25 01/30/23 08:00 Temperature 97.3 F L 96.5 F L Pulse Rate 56 L 67 Respiratory Rate 16 16 Blood Pressure 122/55 L 122/72 Pulse Oximetry 95 100 Oxygen Flow Rate 0 Oxygen Delivery Method Room Air Oxygen Flow Rate 0 Narrative Exam Narrative: Talkative, expansive, no apparent distress, oriented x3 Heart is regular rate and rhythm Extremities are without edema. Objective Labs 01/30/23 05:45 01/30/23 05:45 Labs: Laboratory Results - last 24 hr 01/28/23 01/30/23 01/30/23 11:16 05:45 05:45 WBC 67.2 H* RBC 4.17 Hgb 12.6 Hct 38.7 MCV 92.9 MCH 30.2 MCHC 32.5 RDW 14.6 Plt Count 147 L Neut % (Auto) Not Reportable Lymph % (Auto) Not Reportable [place] % (Auto) Not Reportable Eos % (Auto) Not Reportable Baso % (Auto) Not Reportable Lymph # (Auto) Not Reportable [place] # (Auto) Not Reportable Baso # (Auto) Not Reportable Total Counted 100 Seg Neutrophils % 19.0 L D Lymphocytes % (Manual) 79.0 H Monocytes % (Manual) 1.0 L Eosinophils % (Manual) 1.0 L Neutrophils # (Manual) 76937 H Smudge Cells 3+ H RBC Morphology Normal morphology Sodium 137 Potassium 4.2 Chloride 104 Carbon Dioxide 27 BUN 23 H Creatinine 0.75 Estimated GFR > 60 BUN/Creatinine Ratio 30.7 H Glucose 96 Hgb A1c (Ref Lab) 5.5 Estim Average Glucose 111 Calcium 9.3 PFSH Medical History CLL (chronic lymphocytic leukemia) Social History household members: spouse Smoking Status: Former smoker Discharge Plan Discharge Plan Patient Disposition: Home Provider Discharge Comment: You were admitted to the hospital with chest pain. Your workup was reassuring thus far with an unremarkable echocardiogram. Given you have stress testing coming up shortly, you can discharge home at this time. No medication changes are needed. Please contact your PCP office for records request to be sent. Discharge orders & Medications Prescriptions: Continued valacyclovir 1 gram tablet levothyroxine [Synthroid] 88 mcg tablet 88 mcg PO BEDTIME temazepam 15 mg capsule 15 mg PO BEDTIME PRN (Reason: Insomnia) omeprazole 20 mg capsule,delayed release(DR/EC) 20 mg PO DAILY Acidophilus Probiotic PO BEDTIME Vitamin D3 Complete 15,000 units PO BEDTIME Follow up/Referrals: Paula Sauceda DO [Primary Care Provider] - Diet/Activity/Treatments Diet: Diet as Tolerated and Regular Activity: As tolerated, no restrictions Visit Report/Discharge Packet Instructions: Echocardiogram, DI for Atypical Chest Pain Stand Alone Forms: Patient Portal/API, Stroke Signs & Symptoms Discharge Data Primary Care Provider: Paula Sauceda Attending Provider: Rafat Santacruz Admit Date/Time: 01/28/23 16:13 Discharges patient from system. Discharge Date/Time: 01/30/23 10:15
--- NOTE | 2023-01-30 10:22 | CM.DPC ---
DCP Discharge Home Per MD, pt's echo normal and recommendation would be two-part stress test and no stress test available over the weekend and per MD discussion with pt bedside and pt preference is to d/c and complete stress test as an outpt and to discharge home today. Plan: Patient to d/c home today via spouse POV and outpt stress test follow up after discharge. No further SW needs at this time. RAMAN Reese
== END 2023-01-30 10:15 | disposition home or self-care (01) ==
LOC: ED 12:18 → AC 16:13
PROVIDERS: Admitting Provider Student in an Organized Health Care Education/Training Program; Emergency Provider Emergency Medicine; PCP Family Medicine; Referring Provider Emergency Medicine; Visit Provider Student in an Organized Health Care Education/Training Program
DX: R07.9 Chest pain, unspecified (principal); R06.00 Dyspnea, unspecified; C91.10 Chronic lymphocytic leukemia of B-cell type not having achieved remission; E03.9 Hypothyroidism, unspecified; K21.9 Gastro-esophageal reflux disease without esophagitis
CPT/HCPCS: 36415; 71045; 80048; 80053; 80061; 81003; 81015; 82550; 83036; 83690; 83735; 83880; 84439; 84443; 84484; 85007; 85025; 85379; 85610; 85730; 87086; 93005; 93010; 93306; 96372; 99284; G0378; J1650